=== PATIENT | male | born 1980 | race Caucasian/White ===

== ENCOUNTER 2020-04-14 13:38 | Outpatient (REF) | payer OTHER, SELFPAY | END 2020-04-14 13:39 | disposition home or self-care (01) | LOC: HO.LAB 13:38 | PROVIDERS: PCP Internal Medicine; Visit Provider Internal Medicine | DX: Z20.822 Contact with and (suspected) exposure to COVID-19 (principal) | CPT/HCPCS: 36415; C9803; U0003 ==

== ENCOUNTER 2021-02-05 11:45 | Emergency (ER) | payer OTHER, SELFPAY ==
--- NOTE | 2021-02-05 12:50 | ED.URI ---
HPI - URI/Sore Throat General Chief Complaint: Upper Respiratory Symptoms Stated Complaint: flu like symptoms Time Seen by Provider: 02/05/21 12:48 Source: patient Mode of arrival: ambulatory Limitations: no limitations History of Present Illness MD elicited complaint: cough and sore throat Onset (ago): day(s) (yesterday ) Consistency: constant Able to tolerate fluids by mouth: Yes Exacerbating factors: swallowing Relieving factors: nothing Context: sick contacts (strep throat outbreak at work) Associated symptoms: sore throat, cough and other (feels swollen glands) Treatments prior to arrival: none Related Data Previous Rx's Medication Instructions Recorded amoxicillin 500 mg capsule 500 mg PO BID 10 Days #20 cap 02/05/21 Allergies Allergy/AdvReac Type Severity Reaction Status Date / Time No Known Allergies Allergy Unverified 12/23/19 17:54 Review of Systems Review of Systems: Constitutional : No Fever, No Chills ENT/Mouth : pos sore throat, No Rhinorrhea Eyes: No Eye Pain, No Swelling, No Redness Cardiovascular : No Chest Pain, No SOB Respiratory : pos Cough, No Sputum, No Wheezing Gastrointestinal : No Nausea, No Vomiting, No Diarrhea Genitourinary : No Dysuria, No Urinary Frequency, No Hematuria, Musculoskeletal : No joint pain, No Myalgias, No Joint Swelling Heme/Lymph: No Bruising, No Bleeding,pos Lymphadenopathy PMFSH Past Medical History Attestation statement: The following information was validated with the patient. Medical History (Updated 02/05/21 @ 13:47 by Nieves Castaneda DO) No known health problems Social History Social History (Updated 02/05/21 @ 13:24 by Nieves Castaneda DO) Patient Tobacco Use Status: Former Tobacco user Advance Directives: No Advance Directives Information Provided: No Physical Exam Vital Signs: Vital Signs: Last Vital Signs Temp 98.2 F 02/05/21 13:31 Pulse 80 02/05/21 13:31 Resp 18 02/05/21 13:31 BP 116/72 02/05/21 13:31 Pulse Ox 98 02/05/21 13:31 Body Mass Index 33.2 Appearance: Alert. Oriented X3. No acute distress. Eyes: Pupils equal, round and reactive to light. ENT: Pharynx moderate generalized erythema uvula midline no exudates tolerating secretions Neck: Normal inspection. mild bilateral cervical lymphadenopathy CVS: Normal heart rate and rhythm. Pulses normal. Respiratory: No respiratory distress. Breath sounds normal. Abdomen: Soft and nontender. Skin: Skin warm and dry. Normal skin color. Normal skin turgor. Extremities: No lower extremity edema. No calf ttp Neuro: Oriented X 3. No motor deficit. No sensory deficit. Course Course Course Narrative: stable for DC clinically appears as strep and has close contacts at work with outbreak MDM - URI/Sore Throat MDM Narrative Medical decision making narrative: 40 yo male former smoker he is vaccinated noted strep outbreak at work comes in with sore throat and cough - lungs are clear strep and covid swab ordered. no concern for deeper space infection at this time. Lab Data Labs: Lab Results 02/05/21 02/05/21 Range/Units 13:11 13:11 COVID-19 ([facility]) Negative (Negative) COVID-19 Clin Com See Note S. pyogenes GrpA MOOKIE Negative (Negative) Discharge Plan Discharge Clinical Impression: Pharyngitis Qualifiers: Pharyngitis/tonsillitis etiology: streptococcus Qualified Code(s): J02.0 - Streptococcal pharyngitis Patient Disposition: Home, Self-Care Instructions: Pharyngitis (ED) Additional Instructions: return to ED for any worsening symptoms or concerns COVID NEGATIVE STREP SWAB NEGATIVE BUT GIVEN YOUR EXAM AND OUTBREAK AT WORK YOU HAVE PRESUMED STREP Prescriptions: New amoxicillin 500 mg capsule 500 mg PO BID 10 Days Qty: 20 RF: 0 Stand Alone Forms: Work/School Release
[2021-02-05 13:31] VITALS: BP 116/72; PULSE 80; RESP 18; TEMP 36.8; O2SAT 98; BMI 33.2
[2021-02-05 13:39] LABS: Strep A Nucleic Acid Negative (Negative)
[2021-02-05 13:43] LABS: COVID-19 Test Negative (Negative); IDNOW Serial# 08D9AD1C
== END 2021-02-05 13:54 | disposition home or self-care (01) ==
PROVIDERS: Emergency Provider Emergency Medicine; PCP Internal Medicine
DX: J02.0 Streptococcal pharyngitis (principal); Z87.891 Personal history of nicotine dependence; Z20.822 Contact with and (suspected) exposure to COVID-19
CPT/HCPCS: 36415; 87635; 87651; 99283; 99284

== ENCOUNTER 2023-05-28 15:48 | Outpatient (AMB) | payer OTHER, SELFPAY ==
--- NOTE | 2023-05-28 15:53 | MHC.OFFWIV ---
Intake Vital Signs 05/28/23 15:57 Height 5 ft 9 in Weight 216 lb BMI 31.9 BP 110/72 Blood Pressure Location Lt brachial Position Sitting Pulse 104 H Pulse Source Pulse Oximeter Temp 99.2 F Temp Source Temporal Artery Scan Pulse Oximetry (%) 98 Oxygen Delivery Method Room Air Intake Visit Reasons: EP cough body aches chills Intake Note: pt is here today for cough body aches chills started friday Patient Tobacco Use Status: Former Tobacco user Allergies No Known Allergies Allergy (Verified 05/28/23 16:01) Do you need a note to return to daycare/school/sports/work: Yes HPI HPI Comments History of Present Illness Details 42 y/o male patient who presents to walk in clinic with c/o fevers, cough and body aches since Friday. and Son with similar symptoms. Son hospitalized with Influenza. Denies nausea or vomiting. [facility] Medical History (Updated 02/06/21 @ 00:02 by Deb Pascual) No known health problems Social History (Updated 02/05/21 @ 13:24 by Annette Castaneda DO) Alcohol intake: never Patient Tobacco Use Status: Former Tobacco user Review of Systems Const All systems reviewed & are unremarkable except as noted in HPI and below Physical Exam Vital Signs: Last Vital Signs Temp 99.2 F 05/28/23 15:57 Pulse 104 H 05/28/23 15:57 BP 110/72 05/28/23 15:57 Pulse Ox 98 05/28/23 15:57 Oxygen Delivery Method Room Air 05/28/23 15:57 BMI result Body Mass Index 31.9 Const General: no acute distress and ill appearing HEENT Head: Yes normocephalic and Yes atraumatic Ears: external ears normal and TM's normal bilaterally General nose exam: Abnormal mucous membranes and turbinates present boggy and erythematous Face and sinus: Yes sinuses nontender Mouth: moist mucous membranes Throat: Yes posterior oropharynx normal Resp Effort & Inspection: normal respiratory effort and able to speak in complete sentences Auscultation: clear to auscultation bilaterally Cardio Rate: regular rate Rhythm: regular rhythm Assessment & Plan Assessment & Plan (1) Upper respiratory infection: Code(s): J06.9 - Acute upper respiratory infection, unspecified Qualifiers: URI type: unspecified viral URI Qualified Code(s): J06.9 - Acute upper respiratory infection, unspecified Plan: - Rest - Hydrate with plenty of warm fluids - Small meals - Acetaminophen for pain and fever relief Orders: Orders SARS-CoV2/FLU/RSV Today J06.9 - Acute upper respiratory infection, unspecified Medications: New oseltamivir (Tamiflu) 75 mg PO BID 5 days 10 caps 0RF J06.9 - Acute upper respiratory infection, unspecified acetaminophen 1,000 mg (2 x 500 mg) PO Q6H PRN 30 caps 0RF fever J06.9 - Acute upper respiratory infection, unspecified Coding Level of Care Code Est Pt Level 3 (65586) Diagnoses Viral upper respiratory tract infection J06.9 URI type: unspecified viral URI Time Spent (min) 15
[2023-05-28 15:57] VITALS: BP 110/72; PULSE 104; TEMP 37.3; O2SAT 98; BMI 31.9
== END 2023-05-28 17:21 | disposition home or self-care (01) ==
PROVIDERS: PCP Internal Medicine; Visit Provider Nurse Practitioner Family
DX: J06.9 Acute upper respiratory infection, unspecified (principal)
CPT/HCPCS: 99213

== ENCOUNTER 2023-05-28 16:20 | Outpatient (REF) | payer OTHER, SELFPAY ==
[2023-05-29 13:33] LABS: Influenza A PCR POSITIVE (Negative); Influenza B PCR NEGATIVE (Negative); Resp Syncy Virus RNA Qual PCR NEGATIVE (Negative); SARS COV2 PCR INHOUSE NEGATIVE (Negative)
== END 2023-05-28 16:21 | disposition home or self-care (01) ==
LOC: HO.LAB 16:20
PROVIDERS: Visit Provider Nurse Practitioner Family
DX: Z11.52 Encounter for screening for COVID-19 (principal); Z20.822 Contact with and (suspected) exposure to COVID-19; J06.9 Acute upper respiratory infection, unspecified
CPT/HCPCS: 0241U